=== PATIENT | male | born 1960 | race Caucasian/White ===

== ENCOUNTER 2025-02-26 05:48 | Day surgery (SDC) | payer MEDICARE, MEDICAID ==
--- NOTE | 2025-02-19 10:36 | ELECTROCARDIOGRAPH REPORT ---
[facility] Test Date: 2025-02-19 Test Time: 10:33:40 Pat Name: JAMI ANG Department: [facility]-PRE-OP Patient ID: [facility]-[id number] Room: Gender: M Washcloth Folder: JASON : 1960 Requested By: CHIP SANDOVAL Order Number: [id number] Reading MD: Dr. AAKASH Quigley Measurements Intervals [place] Rate: 54 P: 66 [place]: 167 QRS: 64 QRSD: 92 T: 47 QT: 410 QTc: 389 Interpretive Statements Sinus bradycardia Electronically Signed On 02-19-2025 12:18:[address] AAKASH Quigley Please click the below link to view image of tracing.
[2025-02-19 10:40] LABS: BILIRUBIN,URINE NEGATIVE (Neg); CLARITY,URINE CLEAR (Clear); COLOR,URINE YELLOW (Yellow); GLUCOSE, URINE NEGATIVE (Neg); KETONES,URINE NEGATIVE (Neg); LEUKOCYTE ESTERASE ,URINE NEGATIVE (Neg); NITRITES, URINE NEGATIVE (Neg); OCCULT BLOOD,URINE NEGATIVE (Neg); PROTEIN,URINE NEGATIVE (Neg); UROBILINOGEN,URINE 0.2 E.U/dL (0.2-1.0)
[2025-02-19 10:41] LABS: BASOPHILS % (AUTO) 0.8 % (0-1); EOSINOPHILS # (AUTO) 0.1 X10'3 (0-0.9); EOSINOPHILS % (AUTO) 2.3 % (0-6); LYMPHOCYTES # (AUTO) 1.9 X10'3 (1.1-4.8); LYMPHOCYTES % (AUTO) 31.9 % (21-51); MEAN CORPUSCULAR HGB CONC 34.4 g/dL (33.0-36.5); MEAN PLATELET VOLUME 9.2 FL (7.4-10.4); MONOCYTES # (AUTO) 0.8 X10'3 (0-0.9); MONOCYTES % (AUTO) 14.1 % (2-12); NEUTROPHILS # (AUTO) 3.1 X10'3 (1.8-7.7); NEUTROPHILS % (AUTO) 50.9 % (42-75); PRE OP HEMATOCRIT 43.2 % (42.0-52.0); PRE OP HEMOGLOBIN 14.9 g/dL (14.0-17.9); PRE OP PLATELET COUNT 196 X10'3 (140-440); RED BLOOD COUNT 4.36 X10'6 (4.70-6.10); RED CELL DISTRIBUTION WIDTH 14.1 % (11.5-14.5)
[2025-02-19 10:50] LABS: UA COLLECTION TYPE NON-SPECIFIED
[2025-02-19 10:59] LABS: ALBUMIN 3.5 G/DL (3.4-5.0); ALBUMIN/GLOBULIN RATIO 1.1 (1.1-1.5); ALKALINE PHOSPHATASE 54 IU/L (46-116); BLOOD UREA NITROGEN 13 MG/DL (7-18); BUN/CREATININE RATIO 13.4 (10.0-20.0); CALCIUM 8.8 MG/DL (8.5-10.1); CHLORIDE 106 MMOL/L (99-107); CREATININE 0.97 MG/DL (0.60-1.10); PRE OP ALT 28 U/L (30-65); PRE OP ANION GAP 3 (8-16); PRE OP AST 17 U/L (10-37); PRE OP BILIRUB, TOTAL 0.7 MG/DL (0.0-1.0); PRE OP GLUCOSE 90 MG/DL (70-104); PRE OP SODIUM 139 MMOL/L (135-145); TOTAL CARBON DIOXIDE 29.8 MMOL/L (24-32); TOTAL PROTEIN 6.7 G/DL (6.4-8.2); eGFR 78 ML/MIN
[~2025-02-26] VITALS: Ht 177.8 cm; Wt 86.2 kg
[2025-02-26] VITALS (9 sets, daily range): BP systolic 109–144; BP diastolic 72–94; PULSE 51–71; RESP 8–16; TEMP 98; O2SAT 93–100
[~2025-02-26 05:48] MED LIST: AMPH20TA3 PO; FOLI1TAB27 PO; HYDR200T80 PO; METH2.5T PO
[2025-02-26] MEDS: famotidine 20mg tablet PO ONE (06:31)
[2025-02-26] MEDS: ringers solution, lacted 1,000 ML IV SCH (06:32)
[2025-02-26] MEDS ORDERED: bacitracin 15gm ointment TP ONE (06:48)
[2025-02-26] MEDS ORDERED: BUPIVAcaine 2.5mg/ml inj 50ml vial (contains preservative) ONE (06:49)
[2025-02-26] MEDS: ceFAZolin 2gm in dextrose, iso 50 ML IV ONE (07:06)
[2025-02-26] MEDS ORDERED: ROPIVAcaine 0.5% (5mg/ml) 30ml vial ONE ×2 (07:17→07:57)
[2025-02-26] MEDS ORDERED: cloNIDine hcl/PF 100mcg/ml inj ONE (07:21)
[2025-02-26] MEDS ORDERED: midazolam 1 mg/ML 2ml injection ONE (07:23)
[2025-02-26] MEDS ORDERED: fentaNYL/PF 50MCG/1 ML 2ML syringe ONE (07:23)
[2025-02-26] MEDS ORDERED: morphine 2 MG/ML inj. syringe IV PRN (07:40)
[2025-02-26] MEDS ORDERED: hydrALAZINE 20mg/ml inj. IV PRN (07:40)
[2025-02-26] MEDS ORDERED: proCHLORperazine 10 MG/2 ml inj IV PRN (07:40)
[2025-02-26] MEDS ORDERED: labetalol 20mg/4ml (5mg/ml) syringe IV PRN (07:40)
[2025-02-26] MEDS ORDERED: ringers solution, lacted 1,000 ML IV SCH (07:40)
[2025-02-26] MEDS ORDERED: HYDROmorphone/PF 0.2 MG/ML SYRINGE IV PRN (07:40)
[2025-02-26] MEDS ORDERED: ondansetron/PF 4mg/2ml inj IV PRN (07:40)
[2025-02-26] MEDS ORDERED: meperidine/PF 25mg/ml syringe IV PRN (07:40)
[2025-02-26] MEDS ORDERED: 0.9 % SODIUM CHLORIDE 10 ML VIAL ONE (07:57)
[2025-02-26] MEDS ORDERED: ondansetron/PF 4mg/2ml inj ONE (07:57)
[2025-02-26] MEDS ORDERED: propofol inj 20 ML IV ONE (07:57)
[2025-02-26] MEDS ORDERED: dexamethasone sod phosphate 4mg/ml inj. ONE (07:57)
[2025-02-26] MEDS ORDERED: LIDOcaine 2% (20mg/ml) 5ml vial ONE (07:57)
[2025-02-26] MEDS: morphine 4 MG/ML inj SYRINge IV PRN (08:59)
[2025-02-26] MEDS: acetaminophen 1,000mg/100ml IV 100 ML IV PRN (08:59)
[2025-02-26] MEDS: HYDROmorphone/PF 0.2 MG/ML SYRINGE IV PRN (09:14)
== END 2025-02-26 10:20 | disposition home or self-care (01) ==
LOC: PAS 05:48
PROVIDERS: ATTEND Podiatrist Foot & Ankle Surgery
DX: M20.41 Other hammer toe(s) (acquired), right foot (principal); M06.9 Rheumatoid arthritis, unspecified; M25.374 Other instability, right foot; M19.071 Primary osteoarthritis, right ankle and foot; Z79.899 Other long term (current) drug therapy; Z79.01 Long term (current) use of anticoagulants; G47.33 Obstructive sleep apnea (adult) (pediatric); G89.18 Other acute postprocedural pain; F98.8 Other specified behavioral and emotional disorders with onset usually occurring in childhood and adolescence; M19.072 Primary osteoarthritis, left ankle and foot
CPT/HCPCS: 28112; 28113; 28285; 64445; 64447; 73620; 80053; 81003; 82948; 85025; 93005; A4215; A4618; A6222; A6402; A6449; A7000; J0131; J0690; J0735; J1100; J1171; J2003; J2250; J2270; J2405; J2704; J2795; J3010; J7030; J7120; L4360; Z7506; Z7508; Z7512; Z7610; 76000; J3490